=== PATIENT | male | born 1975 | race African-American/Black ===

== ENCOUNTER 2017-02-23 10:46 | Emergency (ER) | payer OTHER ==
[~2017-02-23] VITALS: Ht 172.7 cm; Wt 86.2 kg
[2017-02-23 10:49] VITALS: BP 134/100
[2017-02-23] MEDS ORDERED: OXYCODONE HCL 55 MG PO (11:32)
== END 2017-02-23 12:01 | disposition home or self-care (01) ==
LOC: ER 10:46
DX: S52.501A Unspecified fracture of the lower end of right radius, initial encounter for closed fracture (principal); F17.210 Nicotine dependence, cigarettes, uncomplicated; X50.0XXA Overexertion from strenuous movement or load, initial encounter; Y93.89 Activity, other specified; Y92.89 Other specified places as the place of occurrence of the external cause; Y99.8 Other external cause status